=== PATIENT | female | born 1960 | race Caucasian/White ===

== ENCOUNTER 2024-12-12 07:55 | Outpatient (OUT) | payer BC, SELFPAY ==
--- NOTE | 2024-12-12 08:13 | US_ITS ---
The [address] [address] Patient Name: NOAH FARLEY MRN: [id number] date: 1960 Sex: F Assigned Patient Location: US Current Patient Location: US Accession/Order Number: [id number] Exam Date: 12/12/2024 08:15 Report Date: 12/12/2024 09:21 At the request of: BC MACEDO Procedure: US aorta Aortic ultrasound Reason for exam: Family history of abdominal aortic aneurysm. Comparison: none Technique: Grayscale, spectral and color Doppler images of the abdominal aorta were obtained. Findings: Visualized portions of the abdominal aorta appears normal in caliber without evidence of aneurysm. Visualized portions of the common iliac arteries also appear normal in caliber. US/US aorta Impression: No ultrasound evidence of abdominal aortic aneurysm. Impression dictated by: Pankaj Manning Jr., D.O. 12/12/2024 9:21 AM Dictation Location: [place] [address] Electronically authenticated by: [id number] Y Date: 12/12/2024 09:21
== END 2024-12-12 07:56 | disposition home or self-care (01) ==
LOC: US 08:01
PROVIDERS: PCP Family Medicine; Visit Provider Nurse Practitioner Family
DX: Z82.49 Family history of ischemic heart disease and other diseases of the circulatory system (principal)
CPT/HCPCS: 76706